=== PATIENT | male | born 1990 ===

== ENCOUNTER 2022-07-02 19:32 | Emergency (ER) | payer MEDICAID ==
[~2022-07-02] VITALS: Ht 177.8 cm; Wt 86.4 kg
--- NOTE | 2022-07-02 20:04 | NUR ---
Patient in handcuffs and coat. Pt is uncooperative and resistant. Not safe to release cuffs at this time. Unable to get vital signs. Pt breathing regular and unlabored. Skin pink and warm with good cap refill in fingers.
== END 2022-07-02 21:15 ==
LOC: ER 19:33
DX: Z88.1 Allergy status to other antibiotic agents; Z56.0 Unemployment, unspecified
CPT/HCPCS: 99283